=== PATIENT | female | born 1990 | race Caucasian/White ===

== ENCOUNTER 2024-09-15 23:39 | Emergency (ER) | payer OTHER, SELFPAY ==
[2024-09-15 23:42] VITALS: BP 137/88; PULSE 104; RESP 18; TEMP 36.1; O2SAT 98; BMI 34.0
--- NOTE | 2024-09-16 00:11 | ED.GENADULT ---
HPI - General Adult General Chief complaint: Abdominal Pain Stated complaint: Right side abdominal pain Time Seen by Provider: 09/15/24 23:53 History of Present Illness HPI narrative: pt reports abd pain, right side under ribs . Started 90 minutes ago (@ 2215). Pepto taken at home, no relief. No nausea or vomiting. Normal urine and bowel. No reported trauma . No abdominal surgery history. Pain rated 7/10. 33-year-old woman presenting to the emergency department with concern of sharp upper right abdominal pain woke her from sleep. Does could get settled. Has started to hurt now into her back on the right side as well. Tried some Pepto without relief. She denies constipation. No dysuria frequency urgency or hematuria. No trauma. Is not nauseated. No fever. No trouble with indigestion or congestion there was a problem prior. Significant other later notes that he did give Tanilla a cupcake with buttercream frosting an hour or 2 before onset of this pain. Related Data Home Medications ?Medication ?Instructions ?Recorded ?Confirmed No Known Home Medications 09/15/24 09/15/24 Allergies Allergy/AdvReac Type Severity Reaction Status Date / Time No Known Drug Allergies Allergy Verified 09/15/24 23:46 Review of Systems Status of ROS: Reports: 6 or more systems reviewed and unremarkable except as noted in History and below [facility] Social History Smoking Status: Never smoker Do you use any of these nicotine containing products: None How often do you have a drink containing alcohol: never AUDIT-C Alcohol total score: 0 Non-prescribed substance use: denies use Exam Narrative: Exam Narrative: Clearly with pain under the right side ribs add positive pain to palpation and percussion of the right flank/right mid rib area. Abdomen is soft without peritoneal signs. No rashes appreciated. Breathing easily. Appears mildly uncomfortable. Transitions with some discomfort. Heart in elevated rate and regular rhythm without murmur rub or gallop. She is well-perfused peripherally. Const: Vital Signs, click to edit/add: Vital Signs - 24 hr 09/15/24 23:42 09/16/24 01:21 Temperature 97.0 F L 98.8 F Pulse Rate [Left P ulse Oximeter] 104 H 79 Respiratory Rate 18 18 Blood Pressure [Ri ght Upper Arm] 137/88 120/89 Pulse Oximetry 98 97 Oxygen Delivery Me thod Room Air Room Air Documenting provider has reviewed patient's vital signs: yes Course Vital Signs Vital signs: Initial Vital Signs Temperature 97.0 F L 09/15/24 23:42 Temperature Source Temporal Artery Scan 09/15/24 23:42 Pulse Rate 104 H 09/15/24 23:42 Pulse Rhythm Regular 09/15/24 23:42 Respiratory Rate 18 09/15/24 23:42 Blood Pressure 137/88 09/15/24 23:42 Blood Pressure Mean 104 09/15/24 23:42 Blood Pressure Position Sitting 09/15/24 23:42 Pulse Oximetry 98 09/15/24 23:42 Oxygen Delivery Method Room Air 09/15/24 23:42 Vital Signs Temperature 97.0 F L 09/15/24 23:42 Pulse Rate 104 H 09/15/24 23:42 Respiratory Rate 18 09/15/24 23:42 Blood Pressure 137/88 09/15/24 23:42 Pulse Oximetry 98 09/15/24 23:42 Oxygen Delivery Method Room Air 09/15/24 23:42 Temperature 98.8 F 09/16/24 01:21 Pulse Rate 79 09/16/24 01:21 Respiratory Rate 18 09/16/24 01:21 Blood Pressure 120/89 09/16/24 01:21 Pulse Oximetry 97 09/16/24 01:21 Oxygen Delivery Method Room Air 09/16/24 01:21 Medications Administered Medications: Discontinued Medications Generic Name Dose Route Start Last Admin Trade Name Freq PRN Reason Stop Dose Admin Ketorolac Tromethamine 30 mg 09/16/24 00:24 09/16/24 01:18 Ketorolac 30 Mg/Ml Inj IVP 09/16/24 00:25 30 mg ONCE ONE Administration Medical Decision Making MDM Narrative Medical decision making narrative: Really leading in the differential is gallbladder disease/biliary colic. I suppose could be urinary tract infection or constipation or gas pain. Little unusual presentation for ureteral stone but also possible. Spontaneous hematoma or infarct?. Low-lying pneumonia however has no respiratory symptoms in pain is not pleuritic. At this time of night decided to proceed with ultrasound directly as well as standard labs. Did discuss preliminary findings of limited abdominal ultrasound with fish frog or oyster farmer. Noted to be ?negative?. Labs are reassuring. Urinalysis with a few white cells noted but this looks to be a potentially contaminated specimen as well. Without clear urinary tract symptoms would not treat at this point. Radiology over-read of limited abdominal ultrasound noting common bile duct of 4 mm essentially a unremarkable/negative ultrasound. Did receive ketorolac IV during time in the emergency department. Pain markedly improved over time. With normal labs and resolution of pain I do not think needs further evaluation at this time. Repeat abdominal exam with maybe very minimal discomfort. Still may well have biliary dysfunction and require stim test or other. Could consult with primary or General surgery though has not had any preceding problems. May have been gas related pain as well. See patient discharge plan for further discussion As discussed, I am not sure what exactly has caused her pain. Certainly could have been intestinal gas or constipation. There is nothing convincing, conclusive in your lab work. Your ultrasound also looked good. It is still possible that you have a problem with your gallbladder; time will tell at this point. Be seen for marked increase in persistent pain, particularly if associated fever. Lab Data Lab results reviewed: Yes I reviewed the patient's lab results Labs: Lab Results 09/16/24 09/16/24 Range/Units 00:49 01:45 WBC 7.58 (4.50-11.00) K/uL RBC 4.84 (4.00-5.20) m/uL Hgb 13.3 (12.0-16.0) gm/dL Hct 41.3 (33.0-51.0) % MCV 85 (80-100) fL MCH 28 (26-34) pg MCHC 32 (32-36) gm/dL RDW Coeff of Zac 13.3 (11.5-15.5) % Plt Count 373 (140-440) K/uL Neut % (Auto) 70.3 (42.0-72.0) % Lymph % (Auto) 18.2 L (20-44) % [place] % (Auto) 8.6 (0.0-11.0) % Eos % (Auto) 1.1 (0.0-7.0) % Baso % (Auto) 0.7 (0.0-3.0) % Neut # (Auto) 5.34 (1.7-7.0) K/uL Lymph # (Auto) 1.40 (0.90-2.90) K/uL [place] # (Auto) 0.70 (0.00-0.90) K/UL Eos # (Auto) 0.08 (0.00-0.50) K/uL Baso # (Auto) 0.05 (0.00-0.30) K/uL Abs Immat Gran (auto) 0.08 (0.00-0.30) K/uL Imm/Tot Granulo (auto) 1.1 % Sodium 140 (135-149) mmol/L Potassium 4.2 (3.6-5.1) mmol/L Chloride 105 (96-114) mmol/L Carbon Dioxide 23 (20-32) mmol/L Anion Gap 12 (7-15) mEq/L BUN 14 (5-24) mg/dL Creatinine 0.6 (0.5-1.5) mg/dL Estimated Creat Clear 112.38 Estimated GFR 123 ml/min Glucose 116 H (60-115) mg/dL Calcium 9.2 (8.4-10.6) mg/dL Total Bilirubin 0.3 (0.1-1.5) mg/dL Direct Bilirubin 0.2 (0.0-0.5) mg/dL AST 18 (12-35) U/L ALT 23 (4-35) U/L Alkaline Phosphatase 59 (40-150) U/L Total Protein 7.5 (6.0-8.3) g/dL Albumin 4.6 (3.3-5.0) g/dL Urine Color Yellow (Yellow) Urine Appearance Cloudy A (Clear) Urine pH 7.0 (5.0-8.5) Ur Specific [place] 1.025 (1.000-1.030) Urine Protein Negative (Negative) Urine Glucose (UA) Negative (Negative) Urine Ketones Negative (Negative) Urine Blood Negative (Negative) Urine Nitrite Negative (Negative) Urine Bilirubin Negative (Negative) Urine Urobilinogen 0.2 (0.2-1.0) Ur Leukocyte Esterase 2+ A (Negative) Urine RBC 0-2 (0-2) Urine WBC 2-5 (0-5) Ur Squamous Epith Cells Moderate A (None-Few) Amorphous Sediment Moderate A (None) Urine Bacteria Few A (None) Discharge Plan Discharge Clinical Impression: Right upper quadrant abdominal pain, Acute flank pain Patient Disposition: Home w/ Parent or Adult Condition: Improved Additional Instructions: As discussed, I am not sure what exactly has caused her pain. Certainly could have been intestinal gas or constipation. There is nothing convincing, conclusive in your lab work. Your ultrasound also looked good. It is still possible that you have a problem with your gallbladder; time will tell at this point. Be seen for marked increase in persistent pain, particularly associated fever. Prescriptions: No Action No Known Home Medications Follow Up/Referrals: Provider,Not a Local [Primary Care Provider] - Stand Alone Forms: [facility] Info Instructions
[2024-09-16 00:54] LABS: Basophils Absolute Auto 0.05 K/uL (0.00-0.30); Basophils Percent Auto 0.7 % (0.0-3.0); Eosinophils Absolute Auto 0.08 K/uL (0.00-0.50); Eosinophils Percent Auto 1.1 % (0.0-7.0); Hematocrit 41.3 % (33.0-51.0); Hemoglobin* 13.3 gm/dL (12.0-16.0); Immature Granulocytes Abs Auto 0.08 K/uL (0.00-0.30); Immature Granulocytes Pct Auto 1.1 %; Lymphocytes Percent Auto 18.2 % (20-44); Mean Corpuscular HGB Conc 32 gm/dL (32-36); Mean Corpuscular Hemoglobin 28 pg (26-34); Mean Corpuscular Volume 85 fL (80-100); Monocytes Percent Auto 8.6 % (0.0-11.0); Neutrophils Absolute Auto 5.34 K/uL (1.7-7.0); Neutrophils Percent Auto 70.3 % (42.0-72.0); Platelet Count* 373 K/uL (140-440); RDW Coefficient of Variation % 13.3 % (11.5-15.5); Red Blood Count 4.84 m/uL (4.00-5.20); White Blood Count* 7.58 K/uL (4.50-11.00)
[2024-09-16 01:00] LABS: Slide Review Reflex No
[2024-09-16 01:07] LABS: Albumin* 4.6 g/dL (3.3-5.0)
[2024-09-16 01:08] LABS: Chloride* 105 mmol/L (96-114); Potassium* 4.2 mmol/L (3.6-5.1); Sodium* 140 mmol/L (135-149)
[2024-09-16 01:10] LABS: Anion Gap 12 mEq/L (7-15); Bilirubin Direct* 0.2 mg/dL (0.0-0.5); Bilirubin Total* 0.3 mg/dL (0.1-1.5); Carbon Dioxide* 23 mmol/L (20-32); Creatinine* 0.6 mg/dL (0.5-1.5); Est. Creatinine Clearance* 112.38; Estimated Glomerular Filt Rate 123 ml/min; Total Protein* 7.5 g/dL (6.0-8.3)
[2024-09-16 01:11] LABS: Alanine Aminotransferase* 23 U/L (4-35); Alkaline Phosphatase* 59 U/L (40-150); Aspartate Amino Transferase* 18 U/L (12-35); Blood Urea Nitrogen* 14 mg/dL (5-24); Calcium* 9.2 mg/dL (8.4-10.6); Glucose* 116 mg/dL (60-115)
[2024-09-16] MEDS: KETOROLAC 30 MG/ML inj IVP (01:18)
[2024-09-16 01:21] VITALS: BP 120/89; PULSE 79; RESP 18; TEMP 37.1; O2SAT 97
[2024-09-16 01:55] LABS: Appearance Urine Cloudy (Clear); Bilirubin Urine Negative (Negative); Blood Urine Negative (Negative); Color Urine Yellow (Yellow); Glucose Urine Negative (Negative); Ketones Urine Negative (Negative); Leukocyte Esterase Urine 2+ (Negative); Nitrite Urine Negative (Negative); Protein Urine Negative (Negative); Specific Gravity Urine 1.025 (1.000-1.030); Urobilinogen Urine 0.2 (0.2-1.0)
[2024-09-16 01:59] LABS: Amorphous Sediment Urine Moderate; Bacteria Urine Few; RBC Urine 0-2 (0-2); Squamous Epithelial Cell Urine Moderate (None-Few)
== END 2024-09-16 02:29 | disposition home or self-care (01) ==
PROVIDERS: Emergency Provider Family Medicine
DX: R10.11 Right upper quadrant pain (principal)
CPT/HCPCS: 36415; 76705; 80048; 80076; 81001; 85025; 87086; 96374; 99284; J1885

== ENCOUNTER 2025-02-26 09:26 | Emergency (ER) | payer OTHER, SELFPAY ==
[2025-02-26 09:40] VITALS: BP 132/95; PULSE 90; RESP 16; TEMP 36.8; O2SAT 96
--- NOTE | 2025-02-26 10:07 | CRLHL7_ITS ---
For Patients: As a result of the Century Cures Act, medical imaging exams and procedure reports are released immediately into your electronic medical record. You may view this report before your referring provider. If you have questions, please contact your health care provider. INDICATION: Right upper quadrant pain TECHNIQUE: Ultrasound abdomen limited. Sonographic images of the right upper quadrant were obtained using fishman-scale and color Doppler images. COMPARISON: None. FINDINGS: Liver: Normal in size and echotexture. No suspicious masses. No intrahepatic biliary dilatation. Areas of rib shadowing limit evaluation. Hepatopetal flow in the main portal vein. Gallbladder: Contracted. Common bile duct: 3 mm. Pancreas: Pancreatic body is unremarkable. Remainder of the pancreas is not well visualized due to bowel gas. Right kidney: Normal in size. Normal echotexture and cortex. No suspicious masses, stones, or hydronephrosis. Vasculature: Proximal abdominal aorta and IVC are unremarkable. IMPRESSION: Unremarkable right upper quadrant ultrasound. Dictated by Marianela Mac MD @ 02/26/2025 11:05:22 AM (Electronically Signed)
--- NOTE | 2025-02-26 10:10 | ED.ABDPAIN ---
HPI - Abdominal Pain General Chief Complaint: Abdominal Pain Stated Complaint: R side pain Time Seen by Provider: 02/26/25 09:59 History of Present Illness HPI narrative: Patient is a 34-year-old woman who presents with intermittent right upper quadrant pain worse in the last several days. She has had anorexia as well but no vomiting. Patient evaluation in September which included a normal gallbladder ultrasound. She has taken Tylenol Motrin with limited effect. No change in her bowel or bladder. No fevers no chills. No other abdominal pain no radicular pain. Related Data Home Medications ?Medication ?Instructions ?Recorded ?Confirmed No Known Home Medications 09/15/24 02/26/25 Allergies Allergy/AdvReac Type Severity Reaction Status Date / Time No Known Drug Allergies Allergy Verified 02/26/25 09:44 Review of Systems Status of ROS Reports: 10 or more systems reviewed and unremarkable except as noted in History and below [facility] Social History Smoking Status: Never smoker Do you use any of these nicotine containing products: None How often do you have a drink containing alcohol: never AUDIT-C Alcohol total score: 0 Non-prescribed substance use: denies use Exam Narrative: Exam Narrative: EXAM GENERAL: Patient appears comfortable and well. EYES: No scleral icterus. ENT: Tympanic membranes and oropharynx normal. THYROID: no thyroid nodules or thyromegaly. LYMPH: No supraclavicular or cervical lymphadenopathy. SKIN: Visible skin seen during exam normal or with benign process only. EXT: No dependent lower extremity pedal edema. HEART: Regular rate and rhythm with no murmurs, rubs, or gallops. LUNGS: Clear to auscultation bilaterally with no crackles or wheezes. ABD: Soft, non tender, non distended. Tenderness in the right upper quadrant noted. PSYCH: Good eye contact, speech is not pressured. Const: Vital Signs, click to edit/add: Vital Signs - 24 hr 02/26/25 09:40 Temperature 98.2 F Pulse Rate [Pulse Oximeter] 90 Respiratory Rate 16 Blood Pressure [Ri ght Upper Arm] 132/95 H Pulse Oximetry 96 Oxygen Delivery Me thod Room Air Course Course ED Course: Will repeat her ultrasound pain CBC comprehensive metabolic panel lipase follow up based on those results. Vital Signs Vital signs: Initial Vital Signs Temperature 98.2 F 02/26/25 09:40 Temperature Source Temporal Artery Scan 02/26/25 09:40 Pulse Rate 90 02/26/25 09:40 Pulse Rhythm Regular 02/26/25 09:40 Respiratory Rate 16 02/26/25 09:40 Blood Pressure 132/95 H 02/26/25 09:40 Blood Pressure Mean 107 H 02/26/25 09:40 Blood Pressure Position Sitting 02/26/25 09:40 Pulse Oximetry 96 02/26/25 09:40 Oxygen Delivery Method Room Air 02/26/25 09:40 Vital Signs Temperature 98.2 F 02/26/25 09:40 Pulse Rate 90 02/26/25 09:40 Respiratory Rate 16 02/26/25 09:40 Blood Pressure 132/95 H 02/26/25 09:40 Pulse Oximetry 96 02/26/25 09:40 Oxygen Delivery Method Room Air 02/26/25 09:40 Temperature 98.2 F 02/26/25 09:40 Pulse Rate 90 02/26/25 09:40 Respiratory Rate 16 02/26/25 09:40 Blood Pressure 132/95 H 02/26/25 09:40 Pulse Oximetry 96 02/26/25 09:40 Oxygen Delivery Method Room Air 02/26/25 09:40 MDM - Abdominal Pain MDM Narrative Medical decision making narrative: Patient presents with right upper quadrant pain. Ultrasound was nondiagnostic as he did have cantalope this morning. Her labs are reassuring. I do think she is having acalculous cholecystitis. I did schedule HIDA scan will have her follow a low-fat diet and be discharged home with outpatient follow-up. Contact her to schedule the HIDA scan. Lab Data Labs: Lab Results 02/26/25 Range/Units 10:10 WBC 5.98 (4.50-11.00) K/uL RBC 4.62 (4.00-5.20) m/uL Hgb 12.8 (12.0-16.0) gm/dL Hct 39.5 (33.0-51.0) % MCV 86 (80-100) fL MCH 28 (26-34) pg MCHC 32 (32-36) gm/dL RDW Coeff of Zac 13.2 (11.5-15.5) % Plt Count 377 (140-440) K/uL Neut % (Auto) 70.2 (42.0-72.0) % Lymph % (Auto) 19.7 L (20-44) % [place] % (Auto) 8.0 (0.0-11.0) % Eos % (Auto) 0.8 (0.0-7.0) % Baso % (Auto) 0.5 (0.0-3.0) % Neut # (Auto) 4.19 (1.7-7.0) K/uL Lymph # (Auto) 1.20 (0.90-2.90) K/uL [place] # (Auto) 0.50 (0.00-0.90) K/UL Eos # (Auto) 0.05 (0.00-0.50) K/uL Baso # (Auto) 0.03 (0.00-0.30) K/uL Abs Immat Gran (auto) 0.05 (0.00-0.30) K/uL Imm/Tot Granulo (auto) 0.8 % Sodium 138 (135-149) mmol/L Potassium 4.2 (3.6-5.1) mmol/L Chloride 106 (96-114) mmol/L Carbon Dioxide 25 (20-32) mmol/L Anion Gap 7 (7-15) mEq/L BUN 16 (5-24) mg/dL Creatinine 0.6 (0.5-1.5) mg/dL Estimated GFR 122 ml/min Glucose 100 (60-115) mg/dL Calcium 9.4 (8.4-10.6) mg/dL Total Bilirubin 0.4 (0.1-1.5) mg/dL AST 25 (12-35) U/L ALT 26 (4-35) U/L Alkaline Phosphatase 61 (40-150) U/L Total Protein 7.4 (6.0-8.3) g/dL Albumin 4.5 (3.3-5.0) g/dL Lipase 107 (23-300) U/L Discharge Plan Discharge Clinical Impression: Abdominal pain Patient Disposition: Home, Self-Care Condition: Stable Instructions: Abdominal Pain (ED) Additional Instructions: Low-fat diet Pain control as previous We have ordered a HIDA scan which showed a will be scheduled your earliest convenience. Does show the function of your gallbladder. Will follow up based on these results. Activity Level: No Restrictions Discharge Diet: Regular Prescriptions: No Action No Known Home Medications Follow Up/Referrals: Provider,Not a Local [Non-Staff, Family Practice] Stand Alone Forms: [employer] Info Instructions
[2025-02-26 10:22] LABS: Hematocrit* 39.5 % (33.0-51.0); Hemoglobin* 12.8 gm/dL (12.0-16.0); Immature Granulocytes Abs Auto 0.05 K/uL (0.00-0.30); Immature Granulocytes Pct Auto 0.8 %; Mean Corpuscular HGB Conc 32 gm/dL (32-36); Mean Corpuscular Hemoglobin 28 pg (26-34); Mean Corpuscular Volume 86 fL (80-100); RDW Coefficient of Variation % 13.2 % (11.5-15.5); Red Blood Count* 4.62 m/uL (4.00-5.20); White Blood Count* 5.98 K/uL (4.50-11.00)
[2025-02-26 10:35] LABS: Chloride* 106 mmol/L (96-114)
[2025-02-26 10:36] LABS: Albumin* 4.5 g/dL (3.3-5.0); Potassium* 4.2 mmol/L (3.6-5.1); Sodium* 138 mmol/L (135-149)
[2025-02-26 10:39] LABS: Alanine Aminotransferase* 26 U/L (4-35); Alkaline Phosphatase* 61 U/L (40-150); Anion Gap 7 mEq/L (7-15); Aspartate Amino Transferase* 25 U/L (12-35); Bilirubin Total* 0.4 mg/dL (0.1-1.5); Blood Urea Nitrogen* 16 mg/dL (5-24); Calcium* 9.4 mg/dL (8.4-10.6); Carbon Dioxide* 25 mmol/L (20-32); Creatinine* 0.6 mg/dL (0.5-1.5); Estimated Glomerular Filt Rate 122 ml/min; Glucose* 100 mg/dL (60-115); Total Protein* 7.4 g/dL (6.0-8.3)
[2025-02-26 10:49] LABS: Lymphocytes Absolute Auto 1.20 K/uL (0.90-2.90); Slide Review Reflex No
== END 2025-02-26 11:35 | disposition home or self-care (01) ==
PROVIDERS: Emergency Provider Internal Medicine; PCP Pediatrics
DX: R10.11 Right upper quadrant pain (principal)
CPT/HCPCS: 36415; 76705; 80053; 83690; 85025; 99283

== ENCOUNTER 2025-03-02 09:32 | Outpatient (CLI) | payer OTHER, SELFPAY ==
--- NOTE | 2025-03-02 10:00 | CRLHL7_ITS ---
For Patients: As a result of the Century Cures Act, medical imaging exams and procedure reports are released immediately into your electronic medical record. You may view this report before your referring provider. If you have questions, please contact your health care provider. INDICATION: Right upper quadrant abdominal pain. Contracted gallbladder described on a right upper quadrant ultrasound February 26, 2025. TECHNIQUE: 7.3 mCi Tc-99m labeled Choletec. 3.45 mg intravenous morphine, per Dr. Merlin Townsend`s verbal order at the time of this study. COMPARISON: Correlation is made with a right upper quadrant ultrasound February 26, 2025 and September 16, 2024. Each ultrasound reportedly demonstrated a contracted gallbladder. FINDINGS: Normal uptake and excretion of tracer by the liver. Activity is identified within the extrahepatic biliary tree between 5 and 10 minutes after injection. There is continued egress of activity from the liver up to 1 hour. Nonvisualization of the gallbladder during the 1st hour of imaging. After the administration of morphine, and with delayed imaging, the gallbladder still not visualized. No biliary leak. IMPRESSION : 1. Nonvisualization of gallbladder both before and after morphine administration. 2. Findings may reflect cholecystitis. Please correlate clinically. Dictated by Maximino Jay MD @ 03/04/2025 10:01:33 AM (Electronically Signed)
[2025-03-02 11:45] VITALS: PULSE 82; RESP 16; O2SAT 100
[2025-03-02] MEDS: MORPHINE 4 MG/ML INJ 3.45 MG IVP (11:45)
--- NOTE | 2025-03-02 11:56 | PC.NURSE ---
Patient here for an outpatient HIDA scan. Unable to visualize the gall bladder. Radiologist requested Morphine to be given and rescanned. Per protocol- 0.04mg/kg to be given. Patient weights 86.2kg. 3.45mg Morphine IV ordered and administered. Patient tolerated well. Scan was complete and patients came to drive patient home. Instructed patient not to drive until medication is worn off. PIV placed in right AC. Removed and catheter intact. Monitored RR and O2 for 30min post medication.
[2025-03-02 11:59] VITALS: PULSE 82; RESP 16; O2SAT 97
[2025-03-02 12:15] VITALS: PULSE 84; RESP 16; O2SAT 97
== END 2025-03-02 09:33 | disposition home or self-care (01) ==
LOC: NM 09:32
PROVIDERS: PCP Pediatrics; Visit Provider Internal Medicine
DX: R10.11 Right upper quadrant pain (principal)
CPT/HCPCS: 78226; 78227; A9537; J2270; J2805

== ENCOUNTER 2025-03-15 07:59 | Day surgery (SDC) | payer OTHER, SELFPAY ==
[2025-03-15] VITALS (13 sets, daily range): BP systolic 112–135; BP diastolic 76–99; PULSE 62–101; RESP 16–18; TEMP 36.2–36.7; O2SAT 95–99; BMI 33.5
[2025-03-15] MEDS: LACTATED RINGERS 1000 ML 1,000 ML 100 ML IV (08:05)
[2025-03-15 08:31] LABS: Ur HCG Qualitative* Negative (Negative)
--- NOTE | 2025-03-15 08:34 | W.PM.H&PU ---
History & Physical Update History & Physical Update H&P Reviewed and patient assessed: No changes noted
--- NOTE | 2025-03-15 08:34 | PM.GSPRC ---
Operative Note Date of procedure: 03/15/25 Pre-op diagnosis: 1. Right upper quadrant pain 2. HIDA scan consistent with cholecystitis - possibly acalculous Post-op diagnosis: Same Type of Procedure: Laparoscopic cholecystectomy Indications: The patient is a 34-year-old female with episodic right upper quadrant pain and nausea who underwent workup which showed findings concerning for acalculous cholecystitis. She underwent several ultrasounds which did not show gallstones, however because of ongoing symptoms she underwent a HIDA scan which showed nonvisualization of the gallbladder, concerning for cholecystitis. Because of ongoing symptoms, we discussed cholecystectomy. She agreed to proceed. Procedure Description: After discussing the risks and benefits of the procedure, the patient signed informed consent.? The operative site was marked and the patient was brought to the operating room and placed on the operating table in supine position.? Care was taken to pad the patient's pressure points.?? The patient was then intubated by anesthesia.?? The operative site was then prepped and draped in the usual sterile fashion.? A time-out was then performed. Entrance to the abdomen was gained via a 5 mm Visiport in the left upper quadrant. The abdomen was insufflated and briefly surveyed for signs of injury. There was none. A 10 mm umbilical port was placed as well as 2 working ports along the right costal margin, all under direct vision. The patient was then placed in reverse Trendelenburg position with the right side up. The gallbladder was noted to be contracted. The fundus was grasped and retracted cephalad. The infundibulum was grasped. A combination of hook cautery and blunt dissection was used to carefully dissect out the cystic duct and artery until they could clearly be seen entering the gallbladder without any intervening structures. The gallbladder was dissected off the cystic plate to achieve the critical view. Once this was achieved the cystic duct and artery were each clipped with 2 clips proximally and 1 clip distally on the specimen side and transected with the scissors. The gallbladder was then taken off of the liver bed and removed from the abdomen using an Endo-Catch bag. The gallbladder bed was surveyed for hemostasis which appeared adequate. The umbilical port fascia was closed with 0 Vicryl using a Car-Bobbi device. The remaining ports were then removed and the abdomen desufflated. The skin was closed with absorbable subcuticular suture. Sterile dressings were applied. Instrument sponge and needle counts were correct at the end of the case. The patient was then woken and transferred to the PACU in stable condition. The patient tolerated the procedure well. Findings: Contracted gallbladder Anesthesia: GETChiquita Surgeon: Justine Torres MD Estimated blood loss (mL): 5 Specimen: Gallbladder Condition: stable Disposition: PACU
[2025-03-15] MEDS: SODIUM CHLORIDE 0.9 % (FLUSH) 10 ML SYRINGE IVF (08:46)
[2025-03-15] MEDS: BUPIVACAINE 0.25% 30 ML 20 ML INJECTION (09:12)
--- NOTE | 2025-03-15 09:12 | SUR.OPER ---
PATIENT QUESTIONS ANSWERED SATISFACTORILY PREOPERATIVELY. PATIENT BROUGHT TO OR #4 PER CART. Patient positioned supine on OR #4 bed. The perioperative team supported arms bilaterally on arm boards. Final approval of positioning by surgeon.
--- NOTE | 2025-03-15 09:59 | P.ANES_ITS ---
Anesthesia Charges Start Date/Time Anesthesia Start Date: 03/15/25 Anesthesia Start Time: 08:49 Stop Date/Time Anesthesia Stop Date: 03/15/25 Anesthesia Stop Time: 09:55 Coding CPT Codes CPT Codes: ANESTH SURG UPPER ABDOMEN - 55043 ([id number]) P2 - PATIENT W/MILD SYST DISEASE, QK - DOG WARDEN 2-4 CNCRNT ANES PROC, QX - SUPPORT SERVICES COORDINATOR SVC W/ MD MED DIRECTION
--- NOTE | 2025-03-15 09:59 | W.ANESCHARGE ---
Anesthesia Charges Start Date/Time Anesthesia Start Date: 03/15/25 Anesthesia Start Time: 08:49 Stop Date/Time Anesthesia Stop Date: 03/15/25 Anesthesia Stop Time: 09:55 Coding CPT Codes CPT Codes: ANESTH SURG UPPER ABDOMEN - 18794 ([id number]) P2 - PATIENT W/MILD SYST DISEASE, QK - REFRACTORY REPAIRER 2-4 CNCRNT ANES PROC, QX - MANAGER OF LOSS PREVENTION OPERATIONS SVC W/ MD MED DIRECTION
--- NOTE | 2025-03-15 10:29 | P.ANES_ITS ---
Anesthesia Charges Start Date/Time Anesthesia Start Date: 03/15/25 Anesthesia Start Time: 08:49 Stop Date/Time Anesthesia Stop Date: 03/15/25 Anesthesia Stop Time: 09:55 Coding CPT Codes CPT Codes: ANESTH SURG UPPER ABDOMEN - 45026 ([id number]) P2 - PATIENT W/MILD SYST DISEASE, QK - LENS COATING TECHNICIAN 2-4 CNCRNT ANES PROC, QX - ASSISTANT PROFESSOR SCULPTURE SVC W/ MD MED DIRECTION
--- NOTE | 2025-03-15 10:29 | W.ANESCHARGE ---
Anesthesia Charges Start Date/Time Anesthesia Start Date: 03/15/25 Anesthesia Start Time: 08:49 Stop Date/Time Anesthesia Stop Date: 03/15/25 Anesthesia Stop Time: 09:55 Coding CPT Codes CPT Codes: ANESTH SURG UPPER ABDOMEN - 15947 ([id number]) P2 - PATIENT W/MILD SYST DISEASE, QK - BOBJ DEVELOPER 2-4 CNCRNT ANES PROC, QX - USER EXPERIENCE ANALYST SVC W/ MD MED DIRECTION
[2025-03-15] MEDS: HYDROCODONE-ACETAMIN 5-325 MG 1 TAB PO (11:26)
== END 2025-03-15 12:30 | disposition home or self-care (01) ==
PROVIDERS: PCP Pediatrics; Visit Provider Surgery
PROC: 0FT44ZZ Resection of Gallbladder, Percutaneous Endoscopic Approach (ICD-10-PCS; CPT 47562; principal; 2025-03-15 09:15)
DX: K81.1 Chronic cholecystitis (principal)
CPT/HCPCS: 47562; 00790; 81025; 88304; A9270; J0330; J0665; J0690; J1100; J1171; J1885; J2250; J2405; J2704; J2710; J3010; J3490; J7120